=== PATIENT | female | born 1975 | race Caucasian/White ===

== ENCOUNTER 2019-09-11 12:58 | Emergency (ER) | payer OTHER, SELFPAY ==
[2018-12-14 10:56] VITALS: BMI 27.1
[2019-09-11 12:59] VITALS: BP 162/91; PULSE 88; RESP 14; TEMP 35.9; O2SAT 100; BMI 29.3
--- NOTE | 2019-09-11 13:46 | RAD_ITS ---
STUDY: X-RAY CHEST REASON FOR EXAM: Female, 44 years old. Left-sided chest pain and tightness for 2 days. TECHNIQUE: PA and lateral views of the chest. COMPARISON: None. FINDINGS: EKG electrodes are seen. The lungs are clear and expanded. Scattered calcified granulomas. There is no demonstrated pleural abnormality. Normal size heart. Normal mediastinum and stefani. Normal visualized pulmonary arteries. Normal visualized aortic arch and descending thoracic aorta. Normal visualized thoracic spine. Normal visualized ribs, clavicles, and shoulders. There is no demonstrated abnormality of the visualized soft tissue structures of the upper abdomen. RAD/Chest PA and Lateral IMPRESSION: Normal x-ray examination of the chest. Electronically Signed: Alex Connell, at 14:19 EST , Service support ,
--- NOTE | 2019-09-11 13:47 | ED.VIS.GEN ---
History of Present Illness Chief Complaint: Chest Other Detail of Chief Complaint: Cough, pleuritic chest pain and sinus congestion Informant: Patient, Significant Other Onset: Weeks Context: Sudden Onset Timing: Intermittent Quality: Respiratory symptoms now complaining of pleuritic chest pain Location: Left Current Severity: Mild Maximum Severity: Moderate Worsened by: Deep breathing Relieved by: Not breathing Associated Symptoms: Upper respiratory symptoms Narrative: She is a 44-year-old woman who presents from urgent care because of left-sided pleuritic chest pain with cough which is intermittently productive, nasal congestion and postnasal drainage. Symptoms started approximately 2 months ago. Symptoms have not been continuous. She was treated with a 10-day course of Augmentin, which she completed 3 weeks ago. She also was prescribed an inhaler which she never filled because she was not wheezing. She is a non-smoker. She does not have history of asthma. She complains of bifrontal head discomfort, she denies photophobia or neck stiffness. She does have change in voice. There is no history of PE or DVT. She denies leg pain or leg swelling. She states she has chronic knee pain. She has no risk factors for PE or DVT. Prior similar symptoms: Yes Recent Illness/Hospitalization: Yes - Past Medical History (1) Sinusitis, acute Status: Acute Past Medical History - Allergies and Home Meds Allergies/Adverse Reactions: Allergies codeine Allergy (Unknown, Verified 09/11/19 12:58) Nausea Primary Care Physician: Silke Long,Out of [NON-STAFF] - Prior records reviewed: Yes Surgical History: noncontributory Lives: Spouse/ Significant Other Smoking Status: Never smoker Alcohol: Rare Drugs: None Review of Systems General: Reports: Chills, Fever, Malaise, Subjective. Denies: Sweats Eyes: Denies: Visual changes - bilaterally, Blurred Vision - bilaterally ENT: Reports: Rhinorrhea. Denies: Bilateral ear pain, Sore throat Cardiovascular: Reports: Chest pain. Denies: Palpitations, Heart racing Respiratory: Reports: Cough, Sputum. Denies: Dyspnea, Dyspnea on exertion, Orthopnea, Paroxysmal nocturnal dyspnea Gastrointestinal: Denies: Abdominal pain, Nausea, Vomiting, Diarrhea, Melena, Hematochezia Genitourinary: Denies: Dysuria, Hematuria, Frequency Musculoskeletal: Denies: Myalgias, Arthralgias, Neck pain, Back pain, Swelling, Extremity Pain, -, - Skin: Denies: Rash, Wounds Neurological: Reports: Headache - Bifrontal. Denies: Weakness, Parasthesia, Numbness Endocrine: Denies: Polyuria, Polydipsia Hematologic: Denies: Easy bruising, Easy bleeding Physical Exam Vital Signs/Narrative: Vital Signs Temp Pulse Resp BP Pulse Ox 09/11/19 12:59 96.6 F L 88 14 162/91 H 100 Inital Vital Signs reviewed: Yes General: Well nourished, Well developed, No Acute Distress, - - With hoarse voice. Head: Normocephalic, Atraumatic Eyes: Perrl, EOMI. Negative for: Pale conjunctiva, Scleral icterus ENT: Moist mucous membranes, TM's clear, Nasal congestion. Negative for: No rhinorrhea, Sinus tenderness Neck: Supple, Nontender, No lymphadenopathy, No JVD Cardiovascular: Regular rate, Regular rhythm, No murmurs, Normal S1, Normal S2 Respiratory: No distress, CTA bilaterally, Chest nontender Back: Nontender, Normal Inspection Extremities: Nontender, No edema, - - There is no asymmetry, swelling, discoloration, leg vein distention, palpable cords or tenderness along the distribution of the deep venous system. Skin: Normal color, No rash, No Trauma. Negative for: Cyanosis, Diaphoresis, Jaundice Neurological: Alert, Oriented x3, Cranial nerves II-XII grossly intact, Normal Strength, Normal Sensation Psychological: Normal affect, Normal Mood Diagnostic/Tx/Re-eval Chest X-Ray - ED: 2 View, Read by ED Physician, Normal, Heart, Mediastinum, Bony Structures, No Acute Disease, Chronic Changes Impressions Chest X-Ray 09/11/19 13:46 IMPRESSION: Normal x-ray examination of the chest. Electronically Signed: Alex Connell, at 14:19 EST , Service support , 09/11/19 13:46 Chest PA and Lateral [RAD] Stat Laboratory Results 09/11/19 09/11/19 13:15 13:15 WBC 4.6 RBC 4.55 Hgb 15.3 H Hct 44.0 MCV 96.7 MCH 33.6 H MCHC 34.8 RDW Std Deviation 41.6 RDW Coeff of Rickey 11.7 Plt Count 208 MPV 10.0 Immature Gran % (Auto) 0.200 Neut % (Auto) 50.4 Lymph % (Auto) 37.5 [place] % (Auto) 11.3 H Eos % (Auto) 0.4 Baso % (Auto) 0.2 Absolute Neuts (auto) 2.3 Absolute Lymphs (auto) 1.73 Nucleated RBC % 0 Sodium 138 Potassium 3.7 Chloride 104 Carbon Dioxide 28.0 Anion Gap 6 BUN 8 Creatinine 0.76 Estim Creat Clear Calc 79.77 Est GFR (MDRD) Af Amer 108 Est GFR (MDRD) Non-Af 89 BUN/Creatinine Ratio 10.6 Glucose 81 Calcium 8.8 Things greater than 1 month with cough and pleuritic chest pain will treat with doxycycline for typical and atypical coverage as well as NSAIDs since there is no contraindication. Patient was made aware of her test results. She was discharged home. - Medical Decision Making Symptoms for approximately 2 weeks now complaining of productive cough with pleuritic chest pain chest x-ray was obtained to assess for pneumonia. Blood work was obtained for risk stratification. Because patient had symptoms rated a month was treated with antibiotics and NSAIDs for pleuritic chest pain. ED Disposition - Plan for ED Patient: Disposition: Home or Assisted Living Diagnosis: Purulent bronchitis, Pleuritic chest pain Instructions: Pleurisy, BRONCHITIS, Antiobiotic Treatment (Adult) Prescriptions: Doxycycline 100 mg PO BID #14 cap Prescription Printed Naproxen [Naprosyn] 500 mg PO BID #14 tab Prescription Printed Referrals: [facility] Doctor,Out of [NON-STAFF] - 1 Week if not improving
[2019-09-11 13:56] VITALS: BP 131/89; PULSE 77; RESP 16; TEMP 35.9; O2SAT 100
[2019-09-11 14:02] LABS: Absolute Lymphocyte Count 1.73 X10^3/uL (0.83-4.51); Absolute Neutrophil Count 2.3 X10^3/uL (2.0-7.7); Basophil# 0.01 X10^3/uL; Basophil% 0.2 % (0-1); Eosinophil# 0.02 X10^3/uL; Eosinophils% 0.4 % (0-5); Hemoglobin 15.3 g/dL (12.0-15.0); Lymphocyte # 1.73 X10^3/ul (4.0); Lymphocyte % 37.5 % (19-41); Mean Corp Hgb Conc 34.8 g/dL (32-36); Mean Corpuscular Hgb 33.6 pg (27.0-32.0); Mean Corpuscular Volume 96.7 fL (81-99); Monocyte# 0.52 X10^3/uL; Monocyte% 11.3 % (0-10); NRBC Flagged by Analyzer 0 % (0-5); Neutrophil # 2.32 X10^3/uL (2.7-7.7); Neutrophil % 50.4 % (47-70); Platelet Count 208 K/mm3 (150-450); RBC Distribution Width CV 11.7 % (11.6-14.6); RBC Distribution Width SD 41.6 fl (35.1-43.9); Red Blood Count 4.55 M/mm3 (4.2-5.4); White Blood Count 4.6 K/mm3 (4.4-11.0)
[2019-09-11 14:08] LABS: Anion Gap 6 (5-15); BUN 8 mg/dL (7-18); BUN/Creat Ratio 10.6 RATIO (10-20); Calcium,Total 8.8 mg/dL (8.5-10.1); Chloride 104 mmol/L (98-107); Creatinine, Serum 0.76 mg/dL (0.55-1.02); EST Glomerular Filtration Rate 89 mL/min (>60); Est Glom Filt Rate - Afr Amer 108 mL/min (>60); Estimated Creatinine Clearance 79.77 ml/min; Glucose 81 mg/dL (74-106); Potassium 3.7 mmol/L (3.5-5.1); Sodium Level 138 mmol/L (136-145)
[2019-09-11 15:20] VITALS: BP 129/92; PULSE 73; RESP 14; O2SAT 96
== END 2019-09-11 15:21 | disposition home or self-care (01) ==
PROVIDERS: Emergency Provider Emergency Medicine
DX: J41.1 Mucopurulent chronic bronchitis (principal); R07.89 Other chest pain; G89.29 Other chronic pain; M25.569 Pain in unspecified knee; Z88.5 Allergy status to narcotic agent
CPT/HCPCS: 71046; 80048; 85025; 99283; A4216

== ENCOUNTER 2021-08-30 10:08 | Emergency (ER) | payer OTHER, SELFPAY ==
[2021-08-30 10:10] VITALS: BP 148/100; PULSE 89; RESP 18; TEMP 31.6; O2SAT 98; BMI 29.2
[2021-08-30 10:26] VITALS: BP 141/83; PULSE 84; RESP 12; TEMP 36.7; O2SAT 98
--- NOTE | 2021-08-30 10:34 | EKG12_ITS ---
Test Reason : CP Blood Pressure : / mmHG Vent. Rate : 069 BPM Atrial Rate : 069 BPM P-R Int : 142 ms QRS Dur : 084 ms QT Int : 378 ms P-R-T Axes : 047 060 016 degrees QTc Int : 405 ms Normal sinus rhythm with sinus arrhythmia Normal ECG Confirmed by JUSTA TALLEY, MARIELENA ([id number]), marketing editor JOSEPH MCKEON ([id number]) on 09/01/2021 9:15:17 AM Referred By: SAE Confirmed By:MARIELENA MARR MD
--- NOTE | 2021-08-30 10:40 | NURSING ---
NO OLD EKGS
[2021-08-30] MEDS: 0.9% Normal Saline 1,000 ML 1000 ML IV (10:45)
[2021-08-30] MEDS: Aspirin 81 MG TAB.CHEW 324 MG PO (10:45)
[2021-08-30 10:46] LABS: Absolute Lymphocyte Count 1.25 X10^3/uL (0.83-4.51); Absolute Neutrophil Count 2.6 X10^3/uL (2.0-7.7); Basophil# 0.02 X10^3/uL; Basophil% 0.5 % (0-1); Eosinophil# 0.03 X10^3/uL; Eosinophils% 0.7 % (0-5); Hematocrit 42.3 % (37-47); Hemoglobin 14.9 g/dL (12.0-15.0); Lymphocyte # 1.25 X10^3/ul (0.83-4.51); Lymphocyte % 28.7 % (19-41); Mean Corp Hgb Conc 35.2 g/dL (32-36); Mean Corpuscular Hgb 33.8 pg (27.0-32.0); Mean Corpuscular Volume 95.9 fL (81-99); Mean Platelet Vol. 8.9 fl (6.2-12.0); Monocyte# 0.45 X10^3/uL; Monocyte% 10.3 % (0-10); NRBC Flagged by Analyzer 0 % (0-5); Neutrophil % 59.6 % (47-70); Platelet Count 183 K/mm3 (150-450); RBC Distribution Width CV 11.8 % (11.6-14.6); RBC Distribution Width SD 41.1 fl (35.1-43.9); Red Blood Count 4.41 M/mm3 (4.2-5.4); White Blood Count 4.4 K/mm3 (4.4-11.0)
--- NOTE | 2021-08-30 10:54 | RAD_ITS ---
STUDY: X-RAY CHEST REASON FOR EXAM: Female, 46 years old. Cough and chest congestion. Chest tightness. TECHNIQUE: Single AP portable view of the chest. COMPARISON: Comparison is made with prior study 09/11/2019. FINDINGS: EKG electrodes are seen. The lungs are clear and expanded. There is no demonstrated pleural abnormality. Normal size heart. Normal mediastinum and stefani. Normal visualized pulmonary arteries. Normal visualized aortic arch and descending thoracic aorta. Normal visualized thoracic spine. Normal visualized ribs, clavicles, and shoulders. There is no demonstrated abnormality of the visualized soft tissue structures of the upper abdomen. RAD/Chest 1 View (Portable) IMPRESSION: Normal x-ray examination of the chest. Electronically Signed: Alex Connell MD at 12:06 EST , Service support ,
[2021-08-30 10:58] LABS: D-Dimer Quantitative (DVT/PE) 0.28 FEU/ug/m (0.27-0.49)
[2021-08-30 11:03] LABS: Anion Gap 5 (5-15); BUN 7 mg/dL (7-18); BUN/Creat Ratio 8.3 RATIO (10-20); Calcium,Total 8.9 mg/dL (8.5-10.1); Chloride 104 mmol/L (98-107); Creatinine, Serum 0.84 mg/dL (0.55-1.02); EST Glomerular Filtration Rate 78 mL/min (>60); Est Glom Filt Rate - Afr Amer 94 mL/min (>60); Glucose 111 mg/dL (74-106); Potassium 3.7 mmol/L (3.5-5.1); Sodium Level 137 mmol/L (136-145); Troponin-I HS 23 pg/mL (3.0-54.0)
[2021-08-30 11:23] VITALS: BP 148/93; PULSE 61; RESP 18; TEMP 36.6; O2SAT 97
[2021-08-30 13:12] LABS: Troponin-I HS 22 pg/mL (3.0-54.0)
--- NOTE | 2021-08-30 14:05 | EDS_ITS ---
HPI History of Present Illness Chief Complaint: Dizziness Narrative Narrative: Patient with previous medical history of chest pains, states that she has been sent to the emergency department previously because of chest tightness. Over the last 2 weeks she has had upper respiratory infection type symptoms and sinus problems. She describes abdominal pain that has resolved, but states she went to her primary care physician's office and was sent in because of central chest tightness and shortness of breath. She states that she has a positive family history of people with early coronary artery disease. Because of her chest tightness, she was sent to the emergency department for evaluation. She feels short of breath at times. She states she is have swelling of her bilateral lower extremities, and states that she has had chronic problems with nasal congestion. Additionally, she states in the past she has had elevated D- dimer and had been sent to the emergency department to rule out pulmonary embolism in the past. [facility] Medical History Arthritis Asthma Back pain Gestational diabetes Hay fever Hemorrhoids history of edg history of removal of abdominal mass Hypertension Knee pain Severe headache Shortness of breath unusual tiredness Home Medications fluticasone propionate 50 mcg/actuation nasal spray,suspension 1 spray INTRANASAL DAILY 12/14/18 [History Last Taken Unknown] ginkgo biloba 40 mg tablet 40 mg PO TID 12/14/18 [History Last Taken Unknown] naproxen 500 mg PO BID #14 tab 09/11/19 [Rx Last Taken Unknown] albuterol sulfate [Ventolin HFA] 1 - 2 puff INHALATION Q4H PRN PRN #1 ea 08/30/21 [Rx Last Taken Unknown] azithromycin 500 mg PO DAILY PRN 3 Days #3 tab 08/30/21 [Rx Last Taken Unknown] Allergy/AdvReac Type Severity Reaction Status Date / Time codeine Allergy Unknown Nausea Verified 08/30/21 10:13 tree and shrub pollen Allergy NEEDS Verified 08/30/21 10:13 FOLLOW-UP Family History Other Cancer Diabetes Heart disease Hypertension Surgical History History of colonoscopy History of dilatation and curettage History of hysterectomy History of lateral meniscus repair of left knee History of tonsillectomy History of wisdom tooth extraction Social History Smoking Status: Never smoker alcohol intake: current details: 0-2x's per month ROS ROS ED ROS Narrative Constitutional: No fever, no chills. HEENT: No sore throat. No neck pain. No loss of vision. No rhinorrhea. Nasal congestion and sinus pressure. Cardiovascular: Positive central chest tightness/chest pain. No palpitations. Bilateral pedal edema. Respiratory: No cough, positive shortness of breath. Abdominal: No abdominal pain. No nausea. No vomiting. Genitourinary: No dysuria. No hematuria. Musculoskeletal: No myalgias. No arthralgias. Neurologic: No headaches. No dizziness. No lightheadedness. Skin: No rash. No change in color. Psychiatric: No depression. No anxiety. EXAM Physical Exam Narrative Exam Narrative: Afebrile. Vital signs noted. HEENT: Normocephalic. Atraumatic. PERRL, EOMI. Neck soft and supple. No point tenderness or step off. Cardiovascular: Regular rate and rhythm. No murmurs, rubs, or gallops appreciated. Respiratory: No tachypnea. Lungs clear to auscultation bilaterally. Gastrointestinal: Abdomen soft, nontender, with normoactive bowel sounds. No rebound or guarding. Neurological: Awake. Alert. Nonfocal, nonlateralizing. Skin: No rash. Normal color. No pallor. Musculoskeletal: No pedal edema. Full range of motion extremities. Const Vital Signs: 08/30/21 10:10 08/30/21 10:26 08/30/21 10:29 Temperature 89 F L 98.1 F Temperature Source Temporal Oral Pulse Rate 89 84 Respiratory Rate 18 12 Respiratory Effort Non-Labored Short of Breath Respiratory Pattern Tachypnea Blood Pressure 148/100 H 141/83 H Blood Pressure Mean 116 102 Pulse Ox 98 98 Oxygen Delivery Method Room Air Room Air 08/30/21 10:44 08/30/21 11:23 Temperature 97.8 F Temperature Source Temporal Pulse Rate 61 Respiratory Rate 18 Respiratory Effort Respiratory Pattern Blood Pressure 148/93 H Blood Pressure Mean 111 Pulse Ox 97 Oxygen Delivery Method Room Air Room Air MDM MDM MDM Narrative Medical decision making narrative: Comprehensive work-up was pursued. Her EKG demonstrates normal sinus rhythm at 69 bpm with sinus arrhythmia, but no acute ST changes. She has normal white count of 4.4, hemoglobin stable at 14.9 with hematocrit 42.3. D-dimer is negative at 0.28. Electrolyte panel is grossly unremarkable except for glucose appropriately elevated at 111. High-sensitivity troponins are negative at 23, and then repeated and negative at 22. At this point in time, I feel she be discharged safely home with follow-up. I do not feel that her chest tightness is related to coronary artery disease. She has a low risk heart score, but is positive for perhaps her story and family history. Regardless, she was written prescriptions for an albuterol inhaler for her chest tightness, and additionally as she has had sinusitis symptoms for more than 2 weeks, for a azithromycin Tri-Rafa to treat her sinusitis. She will follow up with her primary care physician. Return instructions to the emergency department were reviewed. Disposition is discharged home in stable condition. Lab Data Attestation: I reviewed the patient's lab results. Labs: Laboratory Results - last 24 hr 08/30/21 08/30/21 08/30/21 10:38 10:38 10:38 WBC 4.4 RBC 4.41 Hgb 14.9 Hct 42.3 MCV 95.9 MCH 33.8 H MCHC 35.2 RDW Std Deviation 41.1 RDW Coeff of Rickey 11.8 Plt Count 183 MPV 8.9 Immature Gran % (Auto) 0.200 Neut % (Auto) 59.6 Lymph % (Auto) 28.7 [place] % (Auto) 10.3 H Eos % (Auto) 0.7 Baso % (Auto) 0.5 Absolute Neuts (auto) 2.6 Absolute Lymphs (auto) 1.25 Nucleated RBC % 0 D-Dimer Quant (PE/DVT) 0.28 Sodium 137 Potassium 3.7 Chloride 104 Carbon Dioxide 28.0 Anion Gap 5 BUN 7 Creatinine 0.84 Estim Creat Clear Calc 70.70 Est GFR (MDRD) Af Amer 94 Est GFR (MDRD) Non-Af 78 BUN/Creatinine Ratio 8.3 L Glucose 111 H Calcium 8.9 Troponin I High Sens 23 08/30/21 12:50 WBC RBC Hgb Hct MCV MCH MCHC RDW Std Deviation RDW Coeff of Rickey Plt Count MPV Immature Gran % (Auto) Neut % (Auto) Lymph % (Auto) [place] % (Auto) Eos % (Auto) Baso % (Auto) Absolute Neuts (auto) Absolute Lymphs (auto) Nucleated RBC % D-Dimer Quant (PE/DVT) Sodium Potassium Chloride Carbon Dioxide Anion Gap BUN Creatinine Estim Creat Clear Calc Est GFR (MDRD) Af Amer Est GFR (MDRD) Non-Af BUN/Creatinine Ratio Glucose Calcium Troponin I High Sens 22 Radiography Diagnostic Testing: Clinical Impression(s) from Imaging Studies Chest X-Ray 08/30/21 10:54 IMPRESSION: Normal x-ray examination of the chest. Electronically Signed: Alex Connell MD at 12:06 EST , Service support , Discharge Plan Triage Chief Complaint: Dizziness Other Complaint: Cold Sx ED Provider: Keo Reyez Dx/Rx/DC Orders Clinical Impression: Sinusitis, acute, Chest tightness Instructions: ED Chest Pain, Noncardiac, ED Sinusitis (Antibiotic Treatment) Prescriptions: New albuterol sulfate [Ventolin HFA] 90 mcg/actuation HFA aerosol inhaler 1 - 2 puff inhalation Q4H PRN PRN (Reason: Wheezing) Qty: 1 RF: 0 azithromycin 500 mg tablet 500 mg PO DAILY PRN (Reason: sinus symptoms) 3 Days Qty: 3 RF: 0 No Action ginkgo biloba 40 mg tablet 40 mg PO TID RF: 0 fluticasone propionate [Flonase Allergy Relief] 50 mcg/actuation spray,suspension 1 spray INTRANASAL DAILY RF: 0 naproxen 500 MG tablet 500 mg PO BID Qty: 14 RF: 0 Primary Care Provider: Kasi Avalos Referrals: Kasi Avalos MD [Primary Care Provider] - 09/06/21 Disposition Disposition: Home, Self Care
[2021-08-30 14:07] VITALS: BP 127/76; PULSE 68; RESP 16; O2SAT 94
== END 2021-08-30 14:15 | disposition home or self-care (01) ==
PROVIDERS: Emergency Provider Emergency Medicine; PCP Family Medicine
DX: R07.89 Other chest pain (principal); J01.90 Acute sinusitis, unspecified; Z79.1 Long term (current) use of non-steroidal anti-inflammatories (NSAID); Z82.49 Family history of ischemic heart disease and other diseases of the circulatory system; Z86.711 Personal history of pulmonary embolism; I10 Essential (primary) hypertension; J45.909 Unspecified asthma, uncomplicated
CPT/HCPCS: 71045; 80048; 84484; 85025; 85379; 93005; 96360; 99284; J7030; A4216

== ENCOUNTER 2021-09-22 11:22 | Emergency (ER) | payer OTHER, SELFPAY ==
[2021-09-22 11:24] VITALS: BP 137/94; PULSE 811; RESP 16; TEMP 36.6; O2SAT 98; BMI 28.8
--- NOTE | 2021-09-22 11:57 | EDS_ITS ---
HPI HPI - GI History of Present Illness Chief Complaint: Abd Pain Informant: patient Narrative Narrative: Patient presents with primarily right lower quadrant pain. This patient does have abdominal symptoms quite frequently. She has had years of inflammatory bowel disease. Her doctor suspects this will likely end up being Crohn's disease but she has never had positive biopsies. She has had multiple evaluations including colonoscopies. However, when that acceptance normally pain in the left lower quadrant. The right is not normal. She states several days ago she had some discomfort in the periumbilical area which is not uncommon for her. But it seems more in the right lower quadrant now. She is not had fevers but she went to urgent care today and she had a temperature of 99.9 so they recommend she come here. She has had some mild frequency of urination but no dysuria. She has some mild chronic constipation that is not different. She has had nausea and decreased appetite. Moving makes the pain worse. Nothing specifically makes it better. Patient has had a complete hysterectomy other than one ovary but she does not recall which side remains. No cholecystectomy or appendectomy. [facility] Medical History (Updated 09/22/21 @ 14:[address] Aldo Boyce MD) Arthritis Asthma Back pain Gestational diabetes Hay fever Hemorrhoids history of edg history of removal of abdominal mass Hypertension Knee pain Severe headache Shortness of breath unusual tiredness Home Medications fluticasone propionate 50 mcg/actuation nasal spray,suspension 1 spray INTRANASAL DAILY 12/14/18 [History Last Taken Unknown] ginkgo biloba 40 mg tablet 40 mg PO TID 12/14/18 [History Last Taken Unknown] naproxen 500 mg PO BID #14 tab 09/11/19 [Rx Last Taken Unknown] albuterol sulfate [Ventolin HFA] 1 - 2 puff INHALATION Q4H PRN PRN #1 ea 08/30/21 [Rx Last Taken Unknown] dicyclomine 20 mg PO TID #14 tab 09/22/21 [Rx Last Taken Unknown] ondansetron 4 mg PO Q8H PRN #10 tab 09/22/21 [Rx Last Taken Unknown] Allergy/AdvReac Type Severity Reaction Status Date / Time codeine Allergy Unknown Nausea Verified 09/22/21 11:26 tree and shrub pollen Allergy NEEDS Verified 09/22/21 11:26 FOLLOW-UP Family History Other Cancer Diabetes Heart disease Hypertension Surgical History History of colonoscopy History of dilatation and curettage History of hysterectomy History of lateral meniscus repair of left knee History of tonsillectomy History of wisdom tooth extraction Social History Smoking Status: Never smoker alcohol intake: current details: 0-2x's per month ROS ROS ED Constitutional Constitutional ED: Reports fever(s) ENT ENT ED: Denies rhinorrhea or sore throat Cardiovascular Cardiovascular: Denies palpitations Respiratory/Chest Respiratory/Chest: Denies cough or dyspnea Gastrointestinal Gastrointestinal: Reports abdominal pain and nausea; Denies diarrhea or vomiting Genitourinary Genitourinary ED: Reports urinary frequency; Denies dysuria or hematuria Musculoskeletal Musculoskeletal: Denies arthralgias, back pain, myalgias or neck pain Integumentary Denies rash Neurologic Neurologic: Denies headache(s) Endocrine Endocrinology: Denies polydipsia or polyuria Hematologic/Lymphatic Hematologic/Lymphatic: Denies easy bleeding or easy bruising Allergic/Immunologic Allergic/Immunologic ED: Denies urticaria EXAM Physical Exam Const Vital Signs: 09/22/21 11:24 Temperature 97.9 F Temperature Source Temporal Pulse Rate 811 H Respiratory Rate 16 Blood Pressure 137/94 H Blood Pressure Mean 108 Pulse Ox 98 Oxygen Delivery Method Room Air Positive well nourished and well developed General Appearance ED: well developed and NAD HEENT Reports dry mucous membranes normocephalic and atraumatic Mouth ED: Yes dry mucous membranes Mouth: dry mucous membranes Eyes General Eye ED: Negative for pale conjunctiva or scleral icterus Neck No no JVD Resp normal respiratory effort and clear to auscultation bilaterally Auscultation: Negative for rales, rhonchi or wheezes Cardio regular rate, regular rhythm, S1 normal heart sound and no murmurs GI non-distended and no masses GI Narrative: She does have some very mild right lower quadrant tenderness. Auscultation: normoactive bowel sounds Palpation: soft Back/Spine no CVA tenderness Extremity full ROM General Extremety ED: Negative for edema or tenderness General Extremity: Negative for edema Neuro Sensorium / Orientation: alert Psych mental status grossly normal Skin Rashes: no rashes MDM MDM MDM Narrative Medical decision making narrative: Patient's blood work shows just a slightly low white count which she has had before. Remainder of CBC is normal. Electrolytes are unremarkable. Urinalysis shows 0-5 white cells negative leukocyte esterase and negative nitrites. CAT scan shows no acute process. Patient will be treated with Bentyl and Zofran for nausea. We discussed reasons to follow-up. She has not been having myalgias, congestion, sore throat, cough or other Covid symptoms. If she has worsening pain, fevers recurrent vomiting she may need to return. It is recommended she follow-up with her private physician as she has had a long history of inflammatory bowel problems. However, her CT shows no acute process today. Lab Data Attestation: I reviewed the patient's lab results. Labs: Laboratory Results - last 24 hr 09/22/21 09/22/21 09/22/21 12:10 12:10 12:15 WBC 3.9 L RBC 4.26 Hgb 14.3 Hct 41.1 MCV 96.5 MCH 33.6 H MCHC 34.8 RDW Std Deviation 43.2 RDW Coeff of Rickey 12.1 Plt Count 172 MPV 8.9 Immature Gran % (Auto) 0.300 Neut % (Auto) 50.7 Lymph % (Auto) 36.0 [place] % (Auto) 12.4 H Eos % (Auto) 0.3 Baso % (Auto) 0.3 Absolute Neuts (auto) 2.0 Absolute Lymphs (auto) 1.39 Nucleated RBC % 0 Sodium 136 Potassium 4.1 Chloride 103 Carbon Dioxide 28.0 Anion Gap 5 BUN 7 Creatinine 0.75 Estim Creat Clear Calc 79.18 Est GFR (MDRD) Af Amer 108 Est GFR (MDRD) Non-Af 89 BUN/Creatinine Ratio 9.3 L Glucose 86 Calcium 8.6 Urine Color Yellow Urine Clarity Sl. Cloudy Urine pH 7.0 Ur Specific [place] 1.010 Urine Protein Negative Urine Glucose (UA) Normal Urine Ketones 5 H Urine Occult Blood Negative Urine Nitrite Negative Urine Bilirubin Negative Urine Urobilinogen Normal Ur Leukocyte Esterase Negative Urine RBC 0-5 SEEN Urine WBC 0-5 SEEN Ur Squamous Epith Cells 5-10 SEEN Urine Bacteria RARE Urine Mucus 0 SEEN Radiography Diagnostic Testing: Clinical Impression(s) from Imaging Studies Abdomen CT 09/22/21 13:35 IMPRESSION: Negative CT of the abdomen and pelvis without intravenous contrast. Electronically Signed: Roque Stephens MD ([place]) at 13:53 EST , Service support , Discharge Plan Triage Chief Complaint: Abd Pain ED Provider: Aldo Boyce Dx/Rx/DC Orders Clinical Impression: Abdominal pain Instructions: ED Abdominal Pain Unkn Cause Fem Prescriptions: New dicyclomine 20 mg tablet 20 mg PO TID Qty: 14 RF: 0 ondansetron 4 mg tablet,disintegrating 4 mg PO Q8H PRN (Reason: nausea and vomiting) Qty: 10 RF: 0 No Action ginkgo biloba 40 mg tablet 40 mg PO TID RF: 0 fluticasone propionate [Flonase Allergy Relief] 50 mcg/actuation spray,suspension 1 spray INTRANASAL DAILY RF: 0 naproxen 500 MG tablet 500 mg PO BID Qty: 14 RF: 0 albuterol sulfate [Ventolin HFA] 90 mcg/actuation HFA aerosol inhaler 1 - 2 puff inhalation Q4H PRN PRN (Reason: Wheezing) Qty: 1 RF: 0 Primary Care Provider: Kasi Avalos Referrals: Kasi Avalos MD [Primary Care Provider] - 3-5 Days if not improving Disposition Disposition: Home, Self Care
[2021-09-22] MEDS: 0.9% Normal Saline 1,000 ML 1000 ML IV (12:18)
[2021-09-22] MEDS: Ondansetron 4 MG/2 ML Vial IV (12:18)
[2021-09-22 12:20] LABS: Absolute Lymphocyte Count 1.39 X10^3/uL (0.83-4.51); Basophil# 0.01 X10^3/uL; Basophil% 0.3 % (0-1); Eosinophil# 0.01 X10^3/uL; Eosinophils% 0.3 % (0-5); Hematocrit 41.1 % (37-47); Hemoglobin 14.3 g/dL (12.0-15.0); Lymphocyte # 1.39 X10^3/ul (0.83-4.51); Mean Corp Hgb Conc 34.8 g/dL (32-36); Mean Corpuscular Hgb 33.6 pg (27.0-32.0); Mean Corpuscular Volume 96.5 fL (81-99); Mean Platelet Vol. 8.9 fl (6.2-12.0); Monocyte# 0.48 X10^3/uL; Monocyte% 12.4 % (0-10); NRBC Flagged by Analyzer 0 % (0-5); Neutrophil # 1.96 X10^3/uL (2.7-7.7); Neutrophil % 50.7 % (47-70); Platelet Count 172 K/mm3 (150-450); RBC Distribution Width CV 12.1 % (11.6-14.6); RBC Distribution Width SD 43.2 fl (35.1-43.9); Red Blood Count 4.26 M/mm3 (4.2-5.4); White Blood Count 3.9 K/mm3 (4.4-11.0)
[2021-09-22 12:26] LABS: Mucous, Urine 0 SEEN /hpf (<or=2+)
[2021-09-22 12:29] LABS: Color, Urine Yellow (Yellow); Glucose, Dipstick Normal (Normal); Ketone-Dipstick 5 mg/dl (Negative); Leukocyte Esterase-Dipstick Negative /ul (Negative); Nitrite-Dipstick Negative (Negative); Occult Blood-Urine Negative /ul (Negative); Protein-Dipstick Negative (Negative); Urine Bilirubin Dipstick Negative (Negative); Urine Clarity Sl. Cloudy (Clear); Urine Urobilinogen Normal (Normal)
[2021-09-22 12:35] LABS: Anion Gap 5 (5-15); BUN 7 mg/dL (7-18); BUN/Creat Ratio 9.3 RATIO (10-20); Calcium,Total 8.6 mg/dL (8.5-10.1); Chloride 103 mmol/L (98-107); Creatinine, Serum 0.75 mg/dL (0.55-1.02); EST Glomerular Filtration Rate 89 mL/min (>60); Est Glom Filt Rate - Afr Amer 108 mL/min (>60); Estimated Creatinine Clearance 79.18 ml/min; Glucose 86 mg/dL (74-106); Potassium 4.1 mmol/L (3.5-5.1); Sodium Level 136 mmol/L (136-145)
[2021-09-22 12:40] LABS: Bacteria RARE /hpf (None Seen); Red Blood Cells-Urine 0-5 SEEN /hpf (0-5); Squamous Epithelial Cells - UA 5-10 SEEN /hpf (5-10); White Blood Cells 0-5 SEEN /hpf (0-5)
--- NOTE | 2021-09-22 13:35 | CT_ITS ---
EXAM: CT ABDOMEN AND PELVIS WITHOUT INTRAVENOUS CONTRAST CLINICAL INDICATION: RLQ PAin TECHNIQUE: Helically acquired images were obtained of the abdomen and pelvis without intravenous contrast. This CT exam was performed using one or more of the following dose reduction techniques: automated exposure control, adjustment of the mA and/or kV according to patient size, and/or use of iterative reconstruction technique. This report was created using trustedsafe report generation technology. Oral contrast was administered. Coronal and sagittal reformatted images were created and reviewed. CONTRAST: Oral Gastrografin COMPARISON: None. FINDINGS: LOWER THORAX: Unremarkable. Lung bases are clear. No cardiomegaly. No significant pericardial effusion. ABDOMEN: LIVER: Unremarkable. Homogeneous. GALLBLADDER AND BILE DUCTS: Unremarkable. No calcified gallstones. No gallbladder distention or wall edema. No intra- or extrahepatic biliary ductal dilation. PANCREAS: Unremarkable. No focal cystic mass. SPLEEN: Unremarkable. Normal size without focal cystic or solid mass. ADRENALS: Unremarkable. No nodules. KIDNEYS AND URETERS: Unremarkable. Normal renal size and position. No hydronephrosis. STOMACH AND BOWEL: Unremarkable. No stomach or bowel distention. No focal inflammatory change. PELVIS: APPENDIX: No evidence of acute appendicitis. BLADDER: Unremarkable. REPRODUCTIVE: Unremarkable as visualized. No mass. ABDOMEN and PELVIS: INTRAPERITONEAL SPACE: Unremarkable. No ascites or other fluid collection. No free air. BONES/JOINTS: Unremarkable. No suspicious lytic or blastic abnormality. SOFT TISSUES: Unremarkable. No discrete abdominal or pelvic wall hernia. VASCULATURE: Unremarkable. Abdominal aorta is non-dilated. LYMPH NODES: Unremarkable. No enlarged lymph nodes. CT/Abdomen/Pel W ORAL Cont Only IMPRESSION: Negative CT of the abdomen and pelvis without intravenous contrast. Electronically Signed: Roque Stephens MD (Brooks) at 13:53 EST , Service support ,
[2021-09-22 14:39] VITALS: BP 130/84; PULSE 80; RESP 16; O2SAT 99
[2021-09-22 14:40] VITALS: BP 130/84; PULSE 80; RESP 16; O2SAT 99
== END 2021-09-22 14:42 | disposition home or self-care (01) ==
PROVIDERS: Emergency Provider Emergency Medicine; PCP Family Medicine
DX: R10.32 Left lower quadrant pain (principal); K59.00 Constipation, unspecified; R35.0 Frequency of micturition; I10 Essential (primary) hypertension; M19.90 Unspecified osteoarthritis, unspecified site; Z79.1 Long term (current) use of non-steroidal anti-inflammatories (NSAID)
CPT/HCPCS: 74176; 80048; 81001; 85025; 99283; J2405

== ENCOUNTER 2024-07-15 19:32 | Emergency (ER) | payer OTHER, SELFPAY ==
[2024-07-15 19:33] VITALS: BP 138/96; PULSE 103; RESP 19; TEMP 36.2; O2SAT 96; BMI 31.5
--- NOTE | 2024-07-15 19:55 | RAD_ITS ---
STUDY: X-RAY - LEFT HAND REASON FOR EXAM: Female, 49 years old. TRAUMA TECHNIQUE: 3 view(s) of the hand. COMPARISON: None. FINDINGS: Normal radiocarpal articulation. Normal distal radioulnar joint. Normal visualized carpal bones. Normal carpal articulations Normal carpometacarpal articulation of the thumb. Normal second through fifth carpometacarpal joints. Normal metacarpi. Normal metacarpophalangeal joint of the thumb. Normal interphalangeal joint of the thumb. Normal proximal and distal phalanges of the thumb. Normal metacarpophalangeal joints of the second through fifth fingers. Normal proximal and distal interphalangeal joints of the second through fifth fingers. Normal phalanges of the second through fifth fingers. The soft tissue structures are unremarkable. RAD/Hand Min 3 Views IMPRESSION: Normal x-ray examination of the hand. Electronically Signed: Jeff Caraballo MD at 20:19 EDT ,
--- NOTE | 2024-07-15 21:19 | EDS_ITS ---
HPI History of Present Illness Chief Complaint: Bite Narrative Narrative: 49-year-old female with autoimmune disorder presents with injury to her left forearm and swelling of her left hand after being bitten by her dog. She states that this afternoon at around 4 PM, approximately 5 hours ago, her 2 dogs got in a fight that she tried to break up. The 1 dog was a great Freeman that had become very aggressive and bit her in the left forearm and perhaps her left hand. She is right-hand dominant. She states her tetanus immunization may have been within the last 10 years or 10 years ago but she is probably due for an update. She states they had to go and take the dog to be put down because of its aggressive behavior, which is why she has delayed presentation to the ED. She complains of left forearm pain and left hand swelling especially her ring finger. She states that she is having the right side pain more towards her hip and iliac crest that is worse with movement. However, she is here mainly because of the dog bite to her left forearm and hand. [facility] Medical History (Updated 07/15/24 @ 22:27 by Keo Reyez MD) Dog bite Acute bronchitis, unspecified Acute frontal sinusitis, unspecified COVID-19 history of removal of abdominal mass history of edg Back pain Asthma Knee pain Severe headache Hay fever unusual tiredness Gestational diabetes Hemorrhoids Shortness of breath Arthritis Hypertension Home Medications ?Medication ?Instructions ?Recorded ?Last Taken ?Type fluticasone propionate 50 1 spray intranasal DAILY 12/14/18 Unknown History mcg/actuation nasal spray,suspension (Flonase Allergy Relief) ginkgo biloba 40 mg tablet 40 mg PO TID 12/14/18 Unknown History naproxen 500 mg tablet 500 mg PO BID #14 tabs 09/11/19 Unknown Rx albuterol sulfate 90 mcg/actuation 1 - 2 puff inhalation Q4H PRN PRN 08/30/21 Unknown Rx aerosol inhaler (Ventolin HFA) Wheezing #1 ea dicyclomine 20 mg tablet 20 mg PO TID #14 tabs 09/22/21 Unknown Rx amoxicillin 875 mg-potassium 1 tab PO BID 6 days #12 tabs 07/15/24 Unknown Rx clavulanate 125 mg tablet naproxen 500 mg tablet (Naprosyn) 500 mg PO BID PRN pain #20 tabs 07/15/24 Unknown Rx Allergy/AdvReac Type Severity Reaction Status Date / Time codeine Allergy Unknown Nausea Verified 07/15/24 19:35 tree and shrub pollen Allergy NEEDS Verified 07/15/24 19:35 FOLLOW-UP Family History Other Cancer Diabetes Heart disease Hypertension Surgical History History of colonoscopy History of lateral meniscus repair of left knee History of dilatation and curettage History of hysterectomy History of wisdom tooth extraction History of tonsillectomy Social History Smoking Status: Never smoker alcohol intake: current details: 0-2x's per month ROS ROS ED ROS Narrative Focused review of systems positive for right side pain, but mainly multiple abrasions and lacerations to left forearm with swelling to the left hand especially left ring finger. Pain is worse with movement. No pain to the left upper arm. EXAM Physical Exam Narrative Exam Narrative: GCS 15. ABCs are intact. Cardiovascular examination reveals a regular rate and rhythm. Lungs are clear to auscultation bilaterally. Abdomen is soft and nontender with normoactive bowel sounds. She does have mild tenderness to palpation in the area of the right iliac crest, but no rebound or guarding. She is neurovascularly intact to the right lower extremity and has good flexion extension of the right hip. Inspection of the left forearm does reveal multiple small puncture wounds and multiple abrasions/linear abrasions without active bleeding. Palpable radial pulse. Able to oppose thumb, left. She does have swelling of her left ring finger with her wedding ring in place. Good capillary refill distally. Const Vital Signs: 07/15/24 19:33 Temperature 97.1 F L Temperature Source Temporal Pulse Rate 103 H Respiratory Rate 19 H Blood Pressure 138/96 H Blood Pressure Mean 110 Pulse Ox 96 Oxygen Delivery Method Room Air MDM MDM MDM Narrative Medical decision making narrative: Given her multiple abrasions and bite duran to the forearm concern would be for underlying fracture or foreign body. Her wedding ring will be removed by the food service technician. Hand x-rays were obtained in triage and interpreted by myself independently and there is no evidence of acute fracture. I did order forearm x-rays and 2 views. She declined stronger narcotic pain medication and wanted naproxen so she was administered 500 mg orally. She was given a booster at this time for her tetanus, diphtheria and pertussis vaccination. Her wounds will be cleansed by the RN and she was given her first dose of Augmentin here in the emergency department as prophylaxis. As these are dog bites and scratches especially to the hand and forearm, I do not feel that suture closing is indicated given the risk of infection. X-rays of the left forearm interpreted by myself independently shows no evidence of foreign body or acute fracture. I reviewed the radiology report which confirms my independent interpretation. At this point in time, her hand ring had been removed. She will continue ice and elevation of her left hand when possible. As she was given her first dose of Augmentin here, she will be put on an biotics prophylactically for the next 6 days. I discussed narcotic pain medication with her but she declined. I wrote her a prescription for 500 mg of naproxen to take as needed as she has had this prescription in the past. She was told of the risk of ulcer development and gastritis with this as well. At this point in time, I feel she can be discharged to follow-up with her primary care physician. Return instructions to the emergency department were reviewed. Disposition is discharged home in stable condition. History & Record Review Discussion w/independent historian: Patient Additional record(s) reviewed:: Prior ED visit (Noncontributory to current chief complaint.) Lab Data Attestation: I reviewed the patient's lab results. Radiography Diagnostic Testing: Clinical Impression(s) from Imaging Studies Hand X-Ray 07/15/24 19:55 IMPRESSION: Normal x-ray examination of the hand. Electronically Signed: Jeff Caraballo MD at 20:19 EDT , Forearm X-Ray 07/15/24 21:55 IMPRESSION: Normal x-ray examination of the radius and ulna. Electronically Signed: Jeff Caraballo MD at 22:18 EDT , Discharge Plan Triage Chief Complaint: Bite Other Complaint: Laceration ED Provider: Keo Reyez Dx/Rx/DC Orders Clinical Impression: Dog bite of arm, Hand swelling, Multiple abrasions Instructions: Animal Bites and Scratches, ED Dog Bite Prescriptions: New amoxicillin-pot clavulanate 875-125 mg tablet 1 tab PO BID 6 Days Qty: 12 0RF naproxen [Naprosyn] 500 mg tablet 500 mg PO BID PRN (Reason: pain) Qty: 20 0RF No Action ginkgo biloba 40 mg tablet 40 mg PO TID fluticasone propionate [Flonase Allergy Relief] 50 mcg/actuation spray,suspension 1 spray INTRANASAL DAILY naproxen 500 MG tablet 500 mg PO BID Qty: 14 0RF albuterol sulfate [Ventolin HFA] 90 mcg/actuation HFA aerosol inhaler 1 - 2 puff inhalation Q4H PRN PRN (Reason: Wheezing) Qty: 1 0RF dicyclomine 20 mg tablet 20 mg PO TID Qty: 14 0RF Primary Care Provider: Kasi Avalos Referrals: Kasi Avalos MD [Primary Care Provider] - 3-5 Days if not improving Activity Restrictions/Additional Instructions: Continue ice and elevation of your left hand/arm when possible. Take all of the Augmentin as prophylaxis for your dog bite/scratches. Return with fever, increased redness, drainage of pus from wounds, new or worsening symptoms. Print Language: Other Disposition Disposition: Home, Self Care
[2024-07-15] MEDS: Diphth,Pertuss(Acell),Tet Vac 0.5 ML Vial IM (21:33)
[2024-07-15] MEDS: Naproxen 500 MG Tablet PO (21:33)
[2024-07-15] MEDS: Amox/Clavulanate 875 MG Tablet PO (21:33)
--- NOTE | 2024-07-15 21:55 | RAD_ITS ---
STUDY: X-RAY - LEFT RADIUS AND ULNA REASON FOR EXAM: Female, 49 years old. trauma, dog bite TECHNIQUE: 2 view(s) of the forearm. COMPARISON: None. FINDINGS: There is no demonstrated soft tissue swelling. Normal visualized radius. Normal visualized ulna. RAD/Forearm 2 Views IMPRESSION: Normal x-ray examination of the radius and ulna. Electronically Signed: Jeff Caraballo MD at 22:18 EDT ,
--- NOTE | 2024-07-15 22:42 | ED.RN ---
patient refused to habe wounds cleaned and dressed while in the department. Pt states she just wants to go home and shower first. Patient send home with dressing supplies.
== END 2024-07-15 22:43 | disposition home or self-care (01) ==
PROVIDERS: Emergency Provider Emergency Medicine; PCP Family Medicine; Visit Provider Emergency Medicine
DX: S51.812A Laceration without foreign body of left forearm, initial encounter (principal); W54.0XXA Bitten by dog, initial encounter; Z90.710 Acquired absence of both cervix and uterus; Z86.16 Personal history of COVID-19; I10 Essential (primary) hypertension; Z23 Encounter for immunization; M79.89 Other specified soft tissue disorders
CPT/HCPCS: 73090; 73130; 90715; 99284